=== PATIENT | male | born 1935 | race Caucasian/White ===

== ENCOUNTER 2020-06-28 13:29 | Emergency (ER) | payer MEDICARE, MEDICAID ==
[~2020-06-28] VITALS: Ht 180.3 cm; Wt 93.4 kg
[2020-06-28 13:50] VITALS: Ht 180.3 cm; Wt 93.4 kg
[2020-06-28 15:27] LABS: BASOPHIL % 0.7 % (0-2); PLATELET COUNT 191 x10^3mcL (130-400); RED CELL DISTRIBUTION WIDTH 13.5 % (11.5-14.5)
[2020-06-28 15:39] LABS: CALCIUM 8.2 mg/dL (8.5-10.1); CARBON DIOXIDE 26.9 mmol/L (21-32); CHLORIDE SERUM 105 mmol/L (98-107); CREATININE SERUM 1.1 mg/dL (0.7-1.3); GLUCOSE SERUM 98 mg/dL (74-106); SODIUM SERUM 141 mmol/L (136-145)
[2020-06-28 15:43] LABS: ALBUMIN 3.7 g/dL (3.4-5.0); ALKALINE PHOSPHATASE 59 U/L (46-116); ALT/SGPT 32 U/L (16-63); AST/SGOT 23 U/L (15-37); BILIRUBIN TOTAL 0.3 mg/dL (0.20-1.00); TOTAL PROTEIN, SERUM 6.9 g/dL (6.4-8.2)
[2020-06-29 18:12] VITALS: BP 149/91
== END 2020-06-29 18:10 | disposition home or self-care (01) ==
LOC: ED 13:29
PROVIDERS: Emergency Medicine
DX: F03.90 Unspecified dementia, unspecified severity, without behavioral disturbance, psychotic disturbance, mood disturbance, and anxiety (principal); Z20.828 Contact with and (suspected) exposure to other viral communicable diseases
CPT/HCPCS: J7030; Q0092